=== PATIENT | female | born 1965 | race African-American/Black ===

== ENCOUNTER → 2016-09-20 | Outpatient (CLI) | payer OTHER ==
[2015-03-25 10:57] VITALS: BP 168/100
[~2016-09-20] MED LIST: ASCO10002 PO; CYCL10TA2 PO; DIAZEPAM10 MG PO; GABA600T2 PO; IRON INFUSION; MAGN250T5 PO; MELO-156 PO; MONT10TA9 PO; MULT-460 PO; OMEP20CA5 PO; OXYC-244 PO; TOPI200T6 PO; TRIA1CAP3 PO; XOPENEX HFA15 GM IH
== END | disposition home or self-care (01) ==
LOC: PF 08:17
PROVIDERS: ATTEND Neuromusculoskeletal Medicine, Sports Medicine
DX: J45.909 Unspecified asthma, uncomplicated (principal)
CPT/HCPCS: 94060; 94729

== ENCOUNTER → 2016-11-24 | Outpatient (CLI) | payer BC ==
[2015-03-25 10:57] VITALS: BP 168/100
--- NOTE | 2016-11-24 13:47 | KCIC ---
PROCEDURE MRI brain without contrast. HISTORY New onset of headaches with visual disturbance. Pain with sneezing and yawning. Symptoms worsened in the last 2-3 weeks. Hypertension. TECHNIQUE Sagittal T1, axial T1, axial T2, axial FLAIR, axial T2 gradient, coronal T2, oblique coronal FLAIR, and diffusion imaging with ADC map was performed. COMPARISON CT head November 09, 2014. FINDINGS The ventricles are normal in size and configuration for age. There is no acute intracranial hemorrhage or extra-axial fluid collection. Blooming artifact on gradient imaging is probably artifactual involving the posterior fossa and left temporal and occipital lobes. There is no mass effect or midline shift. There is no restricted diffusion to suggest an acute infarct, artifact on DWI imaging is noted in the same distribution as the presumed artifact on gradient imaging. Cervicomedullary junction is unremarkable. The pituitary and suprasellar region are unremarkable. Intracranial flow voids are preserved. There is minimal ethmoid and maxillary mucosal thickening. Oblique coronal imaging through the temporal lobes demonstrates no evidence of mesial temporal sclerosis or temporal lobe mass. IMPRESSION No acute intracranial findings. Electronically signed by: Max Machuca MD (November 24, 2016 13:46:14)
== END | disposition home or self-care (01) ==
LOC: KCIC MRI 11:26
PROVIDERS: ATTEND Nurse Practitioner Family
DX: R51 Headache (principal); H53.8 Other visual disturbances
CPT/HCPCS: 70551